=== PATIENT | male | born 1980 | race Caucasian/White ===

== ENCOUNTER 2023-03-11 05:39 | Inpatient (IN) | payer MEDICAID ==
[~2023-03-11] VITALS: Ht 175.3 cm; Wt 99.9 kg
[~2023-03-11 05:39] MED LIST: ASPI-1497 PO; ATOR40TA70 PO; FENO145 PO; INSU100I24 SQ; LEVO175T7 PO; SITA100T11 PO; TICA90TA PO
[2023-03-11] MEDS: SODIUM CHLORIDE 0.9% 1,000 ML IV SCH (06:40)
[2023-03-11] MEDS ORDERED: SKIN ADHESIVE 0.7 GM EA TOP ONE (07:08)
[2023-03-11] MEDS ORDERED: BUPIVACAINE HCL/PF 0.5% (5MG/ML) 10ML ONE ×2 (07:08→07:39)
[2023-03-11] MEDS ORDERED: CEFAZOLIN SODIUM 1000MG/VIAL ONE (07:42)
[2023-03-11] MEDS ORDERED: SUCCINYLCHOLINE CHLORIDE 200MG/10ML IV ONE (07:42)
[2023-03-11] MEDS ORDERED: DEXAMETHASONE 4MG/ML 1ML VIAL ONE (07:42)
[2023-03-11] MEDS ORDERED: ONDANSETRON HCL 4MG/2ML INJ ONE (07:42)
[2023-03-11] MEDS ORDERED: LIDOCAINE HCL 1% 10 MG/ML 10ML VIAL ONE (07:42)
[2023-03-11] MEDS ORDERED: ROCURONIUM BROMIDE 10MG/ML VIAL 5ML IV ONE (07:43)
[2023-03-11] MEDS ORDERED: FENTANYL CITRATE/PF 50MCG/ML 2ML VIAL ONE ×2 (07:43→08:56)
[2023-03-11] MEDS ORDERED: GLYCOPYRROLATE 0.2 MG/ML 2ML VIAL ONE ×2 (07:43)
[2023-03-11] MEDS ORDERED: PROPOFOL 200MG/20ML VIAL IV ONE (07:43)
[2023-03-11] MEDS ORDERED: NEOSTIGMINE METHYLSULFATE 1MG/ML 10 ML VIAL ONE (07:43)
[2023-03-11] MEDS ORDERED: MIDAZOLAM HCL 2 MG/2 ML VIAL ONE (07:44)
[2023-03-11] MEDS ORDERED: HYDROMORPHONE HCL/PF 2MG/ML CPJ IV PRN (08:00)
[2023-03-11] MEDS ORDERED: LABETALOL 5MG/ML SYR 20 MG/4 ML SYRINGE IV PRN (08:00)
[2023-03-11] MEDS ORDERED: ONDANSETRON HCL 4MG/2ML INJ IV PRN ×2 (08:00→23:15)
[2023-03-11] MEDS ORDERED: MEPERIDINE HCL/PF 25MG/ML CPJ IV PRN (08:00)
[2023-03-11] MEDS ORDERED: MIDO5TAB4 PO (09:00)
[2023-03-11] MEDS ORDERED: PHENYLEPHRINE HCL 10 MG/ML 1ML (IV VIAL) IV ONE (09:11)
[2023-03-11] MEDS ORDERED: EPHEDRINE SULFATE 50MG/ML VIAL IV SCH (10:00)
[2023-03-11 10:36] LABS: HEMATOCRIT 34.2 % (42.0-52.0)
[2023-03-11] MEDS ORDERED: ALBUMIN HUMAN 25GM/500ML (5%) IV SCH (11:30)
[2023-03-11] MEDS: ALBUMIN HUMAN 12.5G/250ML (5%) IV SCH ×2 (11:33→12:00)
[2023-03-11] MEDS ORDERED: ALBUMIN HUMAN 25GM/500ML (5%) IV NR (12:45)
[2023-03-11] MEDS ORDERED: MORPHINE SULFATE 2 MG/ML CPJ (NOT FOR IM USE) IV PRN (14:45)
[2023-03-11 15:02] LABS: HEMATOCRIT 28.2 % (42.0-52.0); HEMOGLOBIN 9.3 g/dL (14.0-18.0)
[2023-03-11] MEDS: DEXT 5%/0.45% NACL KCL 20MEQ/L 1,000 ML IV SCH (16:30)
[2023-03-11 17:45] VITALS: BP 124/75; PULSE 119; RESP 20; TEMP 98.2
[2023-03-11 18:10] VITALS: BP 124/75; PULSE 119; RESP 20; TEMP 98.2
[2023-03-11 19:33] VITALS: BP 120/73; PULSE 114; RESP 19; TEMP 98.1
[2023-03-11 20:00] VITALS: BP 108/59; PULSE 114; RESP 25
[2023-03-11 22:03] LABS: HEMOGLOBIN. 9.8 g/dL (14.0-18.0); MEAN CORPUSCULAR HEMOGLOBIN 29.2 pg (28.0-32.0); MEAN CORPUSCULAR HGB CONC 32.5 g/dL (31.0-37.0); MEAN CORPUSCULAR VOLUME 89.9 fL (80.0-94.0); MEAN PLATELET VOLUME 9.6 fl (7.4-10.4); PLATELET 195 x1000/uL (130-400); RED BLOOD CELL COUNT 3.34 mill/uL (4.7-6.1); RED CELL DISTRIBUTION WIDTH 14.9 % (11.6-14.6); WHITE BLOOD COUNT 10.8 x1000/uL (4.5-11.0)
[2023-03-11 22:07] LABS: DIFFERENTIAL COMMENT 1
[2023-03-11 22:42] LABS: PLATELET ESTIMATE NORMAL
[2023-03-11] MEDS ORDERED: DIPHENHYDRAMINE 50MG/ML VIAL IV PRN (23:15)
[2023-03-11] MEDS ORDERED: ACETAMINOPHEN 325MG TABLET PO PRN ×2 (23:15)
[2023-03-11] MEDS ORDERED: ZOLPIDEM TARTRATE 5MG TABLET PO PRN (23:15)
[2023-03-12] VITALS (13 sets, daily range): BP systolic 82–114; BP diastolic 54–80; PULSE 96–112; RESP 16–38; TEMP 98–99.3
[2023-03-12] MEDS: DEXT 5%/0.45% NACL KCL 20MEQ/L 1,000 ML IV SCH ×2 (01:21→15:01)
[2023-03-12] MEDS ORDERED: DEXTROSE 50% WATER 50ML SYRINGE IV PRN (01:30)
[2023-03-12] MEDS: LEVOTHYROXINE SODIUM 175MCG TABLET PO SCH (05:59)
[2023-03-12] MEDS: BLOOD SUGAR DIAGNOSTIC STRIP TEST SCH ×4 (06:02→20:32)
[2023-03-12 07:23] LABS: BASOPHILS % 0.1 % (0.0-2.0); HEMATOCRIT. 27.4 % (42.0-52.0); HEMOGLOBIN. 8.9 g/dL (14.0-18.0); LYMPHOCYTES % 13.4 % (20.0-50.0); MEAN CORPUSCULAR HEMOGLOBIN 29.1 pg (28.0-32.0); MEAN CORPUSCULAR HGB CONC 32.6 g/dL (31.0-37.0); MEAN CORPUSCULAR VOLUME 89.2 fL (80.0-94.0); MEAN PLATELET VOLUME 9.7 fl (7.4-10.4); MONOCYTES % 8.3 % (2.0-8.0); NEUTROPHILS % 78.2 % (40.0-76.0); PLATELET 186 x1000/uL (130-400); RED BLOOD CELL COUNT 3.07 mill/uL (4.7-6.1); RED CELL DISTRIBUTION WIDTH 14.6 % (11.6-14.6)
[2023-03-12 08:05] LABS: CALCIUM 8.6 mg/dL (8.7-10.4); CARBON DIOXIDE 16 mEq/L (21-32); CHLORIDE 113 mEq/L (98-107); CREATININE 1.1 mg/dL (0.6-1.3); GLUCOSE 196 mg/dL (70-105); POTASSIUM 4.1 mEq/L (3.5-5.1); SODIUM 137 mEq/L (136-145); UREA NITROGEN BLOOD 24 mg/dL (9-23)
[2023-03-12] MEDS: INSULIN LISPRO 100 UNITS/ML SUBCUT SCH ×4 (08:24→21:00)
[2023-03-12] MEDS ORDERED: NALOXONE HCL 0.4MG/ML VIAL IV PRN (09:15)
[2023-03-12] MEDS: SODIUM CHLORIDE 0.9% 1,000 ML IV SCH (13:55)
[2023-03-12 17:05] LABS: HEMATOCRIT 32.2 % (42.0-52.0); HEMOGLOBIN 10.6 g/dL (14.0-18.0)
[2023-03-12 17:39] LABS: CLARITY URINE CLOUDY (CLEAR); COLOR URINE ORANGE (YELLOW); GLUCOSE URINE NEGATIVE (NEGATIVE); KETONES URINE NEGATIVE (NEGATIVE); LEUKOCYTE ESTERASE URINE 2+ (NEGATIVE); NITRITE URINE NEGATIVE (NEGATIVE); OCCULT BLOOD URINE 3+ (NEGATIVE); PROTEIN URINE 1+ (NEGATIVE); SPECIFIC GRAVITY URINE 1.015 (1.005-1.030); UROBILINOGEN URINE 0.2 E.U./dL (0.2-1.0)
[2023-03-12 17:57] LABS: BACTERIA URINE NONE SEEN; SQUAMOUS EPITHELIAL CELL URINE 1+ /lpf (RARE/1+); YEAST URINE 2+
[2023-03-12] MEDS: MUPIROCIN 2% OINT 15GM TOP SCH (23:07)
[2023-03-13] VITALS: BP 107/76; PULSE 104; RESP 27; TEMP 98.1
[2023-03-13 04:00] VITALS: BP 106/70; PULSE 98; RESP 21; TEMP 97.4
[2023-03-13] MEDS: LEVOTHYROXINE SODIUM 175MCG TABLET PO SCH (06:39)
[2023-03-13] MEDS: BLOOD SUGAR DIAGNOSTIC STRIP TEST SCH ×2 (06:40→11:50)
[2023-03-13] MEDS: INSULIN LISPRO 100 UNITS/ML SUBCUT SCH ×2 (07:20→13:43)
[2023-03-13 07:56] LABS: ALBUMIN 3.6 g/dL (3.2-4.8); PREALBUMIN 14.6 mg/dl (10.0-40.0)
[2023-03-13] MEDS: DEXT 5%/0.45% NACL KCL 20MEQ/L 1,000 ML IV SCH ×2 (07:57→08:28)
[2023-03-13 08:00] VITALS: BP 126/89; PULSE 107; RESP 21; TEMP 97.9
[2023-03-13] MEDS: MUPIROCIN 2% OINT 15GM TOP SCH (08:28)
[2023-03-13] MEDS ORDERED: TAMSULOSIN HCL 0.4MG SR CAPSULE PO SCH (10:00)
[2023-03-13] MEDS ORDERED: ASPIRIN 81MG TABLET PO SCH (10:00)
[2023-03-13] MEDS ORDERED: TICAGRELOR 90 MG TABLET PO SCH (10:20)
[2023-03-13 12:00] VITALS: BP 122/83; PULSE 94; RESP 20; TEMP 97.2
[2023-03-13 13:59] VITALS: BP 126/89; PULSE 107; TEMP 97.9
== END 2023-03-13 16:15 | disposition home health service (06) | DRG 263 ==
LOC: OR 05:39 → 3WST 17:50
PROVIDERS: ADMIT Internal Medicine; ATTEND Internal Medicine
PROC: 0FT44ZZ Resection of Gallbladder, Percutaneous Endoscopic Approach (ICD-10-PCS; principal; 2023-03-11)
PROC: 30233N1 Transfusion of Nonautologous Red Blood Cells into Peripheral Vein, Percutaneous Approach (ICD-10-PCS; 2023-03-11)
DX: K80.00 Calculus of gallbladder with acute cholecystitis without obstruction (principal); I95.89 Other hypotension; E03.9 Hypothyroidism, unspecified; E11.9 Type 2 diabetes mellitus without complications; D64.9 Anemia, unspecified; E78.00 Pure hypercholesterolemia, unspecified; I25.10 Atherosclerotic heart disease of native coronary artery without angina pectoris; R33.9 Retention of urine, unspecified; Z95.5 Presence of coronary angioplasty implant and graft; Z83.3 Family history of diabetes mellitus
CPT/HCPCS: 36415; 80048; 81003; 82040; 82962; 83036; 84134; 85014; 85018; 85025; 86850; 86900; 86920; 87077; 87106; 88304; A6261; J0330; J0690; J1100; J1815; J2250; J2270; J2370; J2405; J2704; J2710; J3010; J3490; P9016; P9041; J8499